=== PATIENT | female | born 1995 | race Caucasian/White ===

== ENCOUNTER 2024-08-16 17:58 | Emergency (ER) | payer OTHER ==
[~2024-08-16] VITALS: Ht 152.4 cm; Wt 70.9 kg
[2024-08-16] MEDS ORDERED: NAPROSYN500 MG PO (18:26)
[2024-08-16 18:35] VITALS: BP 143/69
== END 2024-08-16 18:37 | disposition home or self-care (01) ==
LOC: ED 17:58
DX: S39.012A Strain of muscle, fascia and tendon of lower back, initial encounter (principal); V89.2XXA Person injured in unspecified motor-vehicle accident, traffic, initial encounter
CPT/HCPCS: 99283